=== PATIENT | female | born 1980 | race African-American/Black ===

== ENCOUNTER 2018-09-18 12:44 | Day surgery (SDC) | payer MEDICAID ==
[~2018-09-18] VITALS: Ht 170.2 cm; Wt 128.7 kg
[~2018-09-18 12:44] MED LIST: CEFAZOLIN 1,000 MG ONE; DEXAMETHASONE 4 MG/ML, 1ML ONE; No meds per pt.; ONDANSETRON 2MG/ML, 2ML ONE; PROPOFOL 10 MG/ML, 20ML ONE
[2018-09-18] MEDS ORDERED: LACTATED RINGERS 1,000 ML IV SCH (13:28)
[2018-09-18 13:50] VITALS: BP 120/86
[2018-09-18] MEDS ORDERED: FENTANYL PF 250 MCG/5ML ONE (13:54)
[2018-09-18] MEDS ORDERED: MIDAZOLAM 1 MG/ML, 2ML ONE (13:54)
[2018-09-18] MEDS ORDERED: ROPIvacaine/PF 0.5%, 30 ML ONE (14:22)
[2018-09-18] MEDS ORDERED: LIDOCAINE 1%-EPI 1:100K, 20ML ONE (14:22)
[2018-09-18] MEDS ORDERED: MEPERIDINE/PF 25MG/ML,1ML ONE (16:26)
[2018-09-18] MEDS ORDERED: MEPERIDINE/PF 25MG/0.5ML IVPush PRN (16:30)
[2018-09-18] MEDS ORDERED: HYDROmorphone 2 MG/ML, 1ML IVPush PRN (16:30)
[2018-09-18] MEDS ORDERED: ONDANSETRON 2MG/ML, 2ML IV PRN (16:30)
[2018-09-18] MEDS ORDERED: OXYcodone 5 MG/5 ML ORAL.SOL UDC PO PRN (16:30)
[2018-09-18] MEDS ORDERED: LABETALOL 5MG/ML, 20ML IV PRN (16:30)
[2018-09-18] MEDS ORDERED: FENTANYL PF 100 MCG/2ML IV PRN (16:30)
[2018-09-18] MEDS ORDERED: hydrALAzine 20 MG/ML, 1ML IV PRN (16:30)
[2018-09-18] MEDS ORDERED: OXYcodone 5 MG/5 ML ORAL.SOL UDC ONE (16:31)
[2018-09-18] MEDS ORDERED: FENTANYL PF 100 MCG/2ML ONE (16:31)
[2018-09-18] MEDS ORDERED: ONDANSETRON 2MG/ML, 2ML ONE (16:45)
[2018-09-18] MEDS ORDERED: KETOROLAC 30 MG/1 ML ONE (17:27)
[2018-09-18] MEDS ORDERED: PROMETHAZINE 25 MG/ML, 1ML IM PRN (17:30)
[2018-09-18] MEDS ORDERED: morphine SULFATE 10 MG/ML, 1ML IVPush PRN (17:30)
[2018-09-18] MEDS ORDERED: KETOROLAC 30 MG/1 ML IVPush SCH (17:30)
[2018-09-18] MEDS ORDERED: OXYcodone/APAP 5/325MG TABLET PO PRN (17:30)
== END 2018-09-18 17:55 | disposition home or self-care (01) ==
LOC: OUT 12:44
PROVIDERS: ATTEND Orthopaedic Surgery
DX: S83.512A Sprain of anterior cruciate ligament of left knee, initial encounter (principal); S83.282A Other tear of lateral meniscus, current injury, left knee, initial encounter; S83.242A Other tear of medial meniscus, current injury, left knee, initial encounter; M65.862 Other synovitis and tenosynovitis, left lower leg; X58.XXXA Exposure to other specified factors, initial encounter; Y93.89 Activity, other specified; Y92.89 Other specified places as the place of occurrence of the external cause; Y99.8 Other external cause status
CPT/HCPCS: 29880; 29888; 64445; 64447; 73560; 76000; 81025; C1713; C1762; J0690; J1100; J2175; J2250; J2405; J2704; J2795; J3010; J3490; J7120